=== PATIENT | male | born 1980 | race African-American/Black ===

== ENCOUNTER 2023-08-30 14:54 | Emergency (ER) | payer OTHER ==
[2023-08-30 15:14] VITALS: BP 154/111; PULSE 76; RESP 16; TEMP 98; BMI 32.1
[2023-08-30] MEDS ORDERED: ACETAMINOPHEN 500 MG TABLET (FP) ONE (15:23)
[2023-08-30] MEDS: ACETAMINOPHEN 325 MG TABLET (FP) PO ONE (15:25)
== END 2023-08-30 15:28 | disposition home or self-care (01) ==
LOC: FER 14:54
DX: M25.521 Pain in right elbow (principal); Y04.0XXA Assault by unarmed brawl or fight, initial encounter; Y99.0 Civilian activity done for income or pay
CPT/HCPCS: 99283-25

== ENCOUNTER 2024-04-09 18:24 | Emergency (ER) | payer OTHER ==
[2024-04-09 18:36] VITALS: BP 165/125; PULSE 84; RESP 16; TEMP 84; BMI 32.3
[2024-04-09] MEDS ORDERED: IBUPROFEN 400 MG TABLET (FP) PO ONE (18:44)
[2024-04-09] MEDS: IBUPROFEN 400 MG TABLET (FP) PO ONE (18:46)
== END 2024-04-09 18:54 | disposition home or self-care (01) ==
LOC: FER 18:24
DX: S39.91XA Unspecified injury of abdomen, initial encounter (principal); Y04.8XXA Assault by other bodily force, initial encounter; Y99.0 Civilian activity done for income or pay
CPT/HCPCS: 99283-25